=== PATIENT | male | born 1985 | race African-American/Black ===

== ENCOUNTER 2017-07-20 23:46 | Emergency (ER) | payer SELFPAY ==
[2017-07-21 00:32] LABS: ALT (SGPT) 43 U/L (8-55); AST (SGOT) 21 U/L (5-34); Alkaline Phosphatase 95 U/L (40-150); Anion Gap 13 mmol/L (10-20); BUN (Urea Nitrogen) 15 mg/dL (8.9-20.6); Bilirubin, Total 0.3 mg/dL (0.2-1.2); Calc. Creatinine Clearance 0 mL/min (70-130); Calcium 9.4 mg/dL (7.8-10.44); Carbon Dioxide 27 mmol/L (22-29); Chloride 105 mmol/L (98-107); Estimated GFR-MDRD Greater than 90; Globulin 3.9 g/dL (2.4-3.5); Protein, Total 7.7 g/dL (6.0-8.3)
[2017-07-21 00:46] LABS: #Basophils 0.1 thou/uL (0.0-0.2); #Monocytes 0.8 thou/uL (0.11-0.59); #Neutrophils 7.1 thou/uL (1.40-6.50); %Eosinophils 0.2 % (0.0-10.0); %Monocytes 6.6 % (0.0-10.0); Hematocrit 46.6 % (42.0-52.0); Macrocytosis SLIGHT = 6-15 cells (100X) (0-5/hpf); Mean Platelet Volume 7.7 fL (7.4-10.4); Red Blood Cell (RBC) Count 4.06 mill/uL (4.70-6.10)
[2017-07-21] MEDS ORDERED: Ondansetron HCl/PF 4 MG/2 ML Vial ONE (01:19)
[2017-07-21] MEDS ORDERED: Morphine 4 MG/ML VIAL ONE (01:19)
[2017-07-21 01:34] LABS: Bilirubin Small (Negative); Blood, Urine Large (Negative); Glucose, Urine (Dipstick) Negative (Negative); Ketone, Urine Trace mg/dL (Negative); Nitrite Negative (Negative); Protein, Urine (Dipstick) 30 mg/dL (Neg-Trace)
[2017-07-21 01:36] LABS: Bacteria/HPF None Seen HPF (None Seen); Hyaline Casts/LPF 0-3 HYALINE CAST LPF (0-3 Hyaline); RBC/HPF GREATER THAN 50-TNTC HPF (0-3); Squamous Epithelial None Seen HPF (0-3); WBC/HPF 0-3 HPF (0-3)
[2017-07-21] MEDS ORDERED: Ketorolac Tromethamine 30 MG/ML VIAL ONE (02:13)
[2017-07-21 02:16] LABS: Lipase 11 U/L (8-78)
[2017-07-21 02:17] LABS: CK (CPK) 207 U/L (30-200)
--- NOTE | 2017-07-21 07:39 | CT ---
PRELIMINARY REPORT/[facility]/EMERGENCY AFTER HOURS PROCEDURE: EXAM: CT Abdomen and Pelvis Without Intravenous Contrast CLINICAL HISTORY: 31 years old, male; Pain; Abdominal pain; Flank; Left; Patient HX: [id number] presents to ed for left sided flank pain. Pt reports sudden onset of left sided flank pain that started around 6pm today. Pt report s vomiting but denies vomiting any blood. Pt denies any testicular pain. Pt reports HX of similar sym ptoms but reports he didn't go to an er at that time. Pt denies HX of injury to his back. Pt denies H X of kidney stones. TECHNIQUE: Axial computed tomography images of the abdomen and pelvis without intravenous contrast. Coronal reformatted images were created and reviewed. COMPARISON: No relevant prior studies available. FINDINGS: Lower thorax: No acute findings. ABDOMEN: Liver: Mild hepatomegaly. Gallbladder and bile ducts: Normal. Pancreas: Normal. Spleen: Normal. Adrenals: Normal. Kidneys and ureters: Normal. Stomach and bowel: Normal. Appendix: No findings to suggest acute appendicitis. PELVIS: Bladder: Normal. Reproductive: Normal as visualized. ABDOMEN and PELVIS: Intraperitoneal space: Normal. No free air. No significant fluid collection. Bones/joints: No acute fracture. No dislocation. Soft tissues: Normal. Vasculature: Phleboliths within the pelvis. No abdominal aortic aneurysm. Lymph nodes: Normal. IMPRESSION: 1. No acute findings. 2. Non-acute findings are described above. Thank you for allowing us to participate in the care of your patient. Dictated and Authenticated by: Jeevan Schaefer MD 07/21/2017 1:40 AM Central Time ([place] & [place]) FINAL REPORT: CT ABDOMEN AND PELVIS NONCONTRAST: FINDINGS/IMPRESSION: I agree with the above-provided preliminary interpretation provided above. No urolithiasis or obstructive uropathy. Reference is made to 07/02/16 exam.
== END 2017-07-21 03:56 | disposition home or self-care (01) ==
LOC: ERS 23:46
DX: R31.9 Hematuria, unspecified (principal); R10.9 Unspecified abdominal pain; I10 Essential (primary) hypertension; F17.210 Nicotine dependence, cigarettes, uncomplicated; Z71.6 Tobacco abuse counseling
CPT/HCPCS: 36415; 74176; 80053; 81003; 81015; 82550; 83690; 85025; 96361; 96374; 96375; 99406; J1885; J2270; J2405

== ENCOUNTER 2017-07-22 22:16 | Emergency (ER) | payer SELFPAY ==
[~2017-07-22 22:16] MED LIST: ISOVUE-370 76%-LOCM 1 ML ONE; Iopamidol 370 76% 50 ML VIAL FS ONE
[2017-07-22] MEDS ORDERED: Morphine 4 MG/ML VIAL ONE (23:00)
[2017-07-22] MEDS ORDERED: Morphine 2 mg/2ml in 0.9% NaCl PF SYRINGE ONE (23:01)
[2017-07-22] MEDS ORDERED: Ondansetron HCl/PF 4 MG/2 ML Vial ONE (23:01)
[2017-07-22 23:23] LABS: #Basophils 0.1 thou/uL (0.0-0.2); #Eosinphils 0.1 thou/uL (0.0-0.7); #Lymphocytes 4.3 thou/uL (1.20-3.40); #Monocytes 0.9 thou/uL (0.11-0.59); #Neutrophils 7.4 thou/uL (1.40-6.50); %Basophils 0.7 % (0.0-1.0); %Eosinophils 0.4 % (0.0-10.0); %Lymphocytes 33.8 % (21.0-51.0); %Monocytes 6.8 % (0.0-10.0); Hematocrit 45.6 % (42.0-52.0); Mean Platelet Volume 8.7 fL (7.4-10.4); Red Blood Cell (RBC) Count 4.01 mill/uL (4.70-6.10); White Blood Cell (WBC) Count 12.7 thou/uL (4.8-10.8)
[2017-07-22 23:24] LABS: Lactic Acid - Sepsis 2.1 mmol/L (0.5-2.2)
[2017-07-22 23:25] LABS: ALT (SGPT) 23 U/L (8-55); AST (SGOT) 14 U/L (5-34); Alkaline Phosphatase 84 U/L (40-150); Anion Gap 14 mmol/L (10-20); BUN (Urea Nitrogen) 15 mg/dL (8.9-20.6); Bilirubin, Total 0.4 mg/dL (0.2-1.2); Calc. Creatinine Clearance 0 mL/min (70-130); Calcium 9.2 mg/dL (7.8-10.44); Carbon Dioxide 24 mmol/L (22-29); Chloride 104 mmol/L (98-107); Estimated GFR-MDRD Greater than 90; Globulin 3.7 g/dL (2.4-3.5); Lipase 15 U/L (8-78); Protein, Total 7.3 g/dL (6.0-8.3)
[2017-07-23 00:27] LABS: Bilirubin Negative (Negative); Blood, Urine Large (Negative); Glucose, Urine (Dipstick) Negative (Negative); Ketone, Urine 15 mg/dL (Negative); Nitrite Negative (Negative); Protein, Urine (Dipstick) Trace mg/dL (Neg-Trace)
[2017-07-23 00:30] LABS: Bacteria/HPF None Seen HPF (None Seen); Hyaline Casts/LPF 0-3 HYALINE CAST LPF (0-3 Hyaline); RBC/HPF 21-50 HPF (0-3); Squamous Epithelial None Seen HPF (0-3); WBC/HPF 0-3 HPF (0-3)
--- NOTE | 2017-07-23 08:01 | CT ---
PRELIMINARY REPORT/[facility]/EMERGENCY AFTER HOURS PROCEDURE: EXAM: CT Abdomen and Pelvis With Intravenous Contrast EXAM DATE/TIME: 07/23/2017 12:57 AM CLINICAL HISTORY: Pain; Abdominal pain; Generalized; Patient HX: [id number] presents to ed C/O abd pain, ons et . Pt notes recent dx of nephrolithiasis. Pt passed stone. At that time, pt seen in ed and given RX toradol. RX never offered any relief. Associated with radiation of pain to back and flank, d ecr appetite. Denies fever, chills, eye complaints, sore throat, hematuria, hematemesis, drug use. HX tobacco use (x 4-5 cigarettes daily). Nkda. TECHNIQUE: Axial computed tomography images of the abdomen and pelvis with intravenous contrast. Coronal reformatted images were created and reviewed. COMPARISON: CT Stone Protocol 2017-07-21 00:55 FINDINGS: Lower thorax: Contrast in the distal esophagus compatible with reflux. ABDOMEN: Liver: Unremarkable. No mass. Gallbladder and bile ducts: Unremarkable. No calcified stones. No ductal dilation. Pancreas: Unremarkable. No mass. No ductal dilation. Spleen: Unremarkable. No splenomegaly. Adrenals: Unremarkable. No mass. Kidneys and ureters: Excreted contrast within the proximal renal collecting systems bilaterally limit ing evaluation for underlying calculi. No hydronephrosis. No ureteral calculi. Stomach and bowel: Unremarkable. No obstruction. No mucosal thickening. Appendix: No findings to suggest acute appendicitis. PELVIS: Bladder: Unremarkable. No mass. Reproductive: Rounded cystic structures again demonstrated in the scrotum bilaterally measuring appro ximately 3.5 x 3.1 x 3.1 cm on the right and 2.5 x 2.3 x 2.6 cm on the left which may represent epidi dymal cysts. ABDOMEN and PELVIS: Intraperitoneal space: Unremarkable. No free air. No significant fluid collection. Bones/joints: No acute fracture. No dislocation. Soft tissues: Unremarkable. Vasculature: Unremarkable. No abdominal aortic aneurysm. Lymph nodes: Unremarkable. No enlarged lymph nodes. IMPRESSION: 1. No evidence for renal obstruction. No identifiable ureteral calculi. 2. Other findings as above. ---We are pleased to participate in the care of your patient.--- Thank you for allowing us to participate in the care of your patient. Dictated and Authenticated by: Loraine De Leon MD 07/23/2017 1:22 AM Central Time ([place] & [place]) FINAL REPORT CT ABDOMEN AND PELVIS WITH IV CONTRAST: Liver, spleen, and pancreas unremarkable. Kidneys appear unremarkable. No hydronephrosis. There is nonspecific distention of small bowel loops. No evidence of acute process. I am in agreement with the preliminary report. POS: [facility]
== END 2017-07-23 03:42 | disposition home or self-care (01) ==
LOC: ERS 22:16
DX: N50.3 Cyst of epididymis (principal); R31.9 Hematuria, unspecified; I10 Essential (primary) hypertension; F17.210 Nicotine dependence, cigarettes, uncomplicated
CPT/HCPCS: 36415; 74177; 80053; 81003; 81015; 83605; 83690; 85025; 87086; 96361; 96374; 96375; 99406; J2270; J2405

== ENCOUNTER 2017-07-26 10:00 | Emergency (ER) | payer SELFPAY ==
[2017-07-26 10:52] LABS: #Eosinphils 0.1 thou/uL (0.0-0.7); #Lymphocytes 3.2 thou/uL (1.20-3.40); #Monocytes 0.8 thou/uL (0.11-0.59); #Neutrophils 5.5 thou/uL (1.40-6.50); %Basophils 0.2 % (0.0-1.0); %Eosinophils 0.6 % (0.0-10.0); %Lymphocytes 33.5 % (21.0-51.0); %Monocytes 8.1 % (0.0-10.0); Hematocrit 46.6 % (42.0-52.0); Mean Platelet Volume 8.5 fL (7.4-10.4); Red Blood Cell (RBC) Count 4.04 mill/uL (4.70-6.10); White Blood Cell (WBC) Count 9.6 thou/uL (4.8-10.8)
[2017-07-26 11:10] LABS: ALT (SGPT) 15 U/L (8-55); AST (SGOT) 16 U/L (5-34); Alkaline Phosphatase 78 U/L (40-150); Anion Gap 14 mmol/L (10-20); BUN (Urea Nitrogen) 9 mg/dL (8.9-20.6); Bilirubin, Total 0.3 mg/dL (0.2-1.2); Calc. Creatinine Clearance 0 mL/min (70-130); Calcium 9.6 mg/dL (7.8-10.44); Carbon Dioxide 26 mmol/L (22-29); Chloride 102 mmol/L (98-107); Estimated GFR-MDRD Greater than 90; Globulin 3.7 g/dL (2.4-3.5); Protein, Total 7.3 g/dL (6.0-8.3)
[2017-07-26 11:16] LABS: Macrocytosis MODERATE=16-30 cells (100X) (0-5/hpf)
[2017-07-26 12:22] LABS: Bilirubin Small (Negative); Blood, Urine Large (Negative); Glucose, Urine (Dipstick) Negative (Negative); Ketone, Urine 80 mg/dL (Negative); Nitrite Negative (Negative); Protein, Urine (Dipstick) 30 mg/dL (Neg-Trace)
[2017-07-26 12:26] LABS: Bacteria/HPF None Seen HPF (None Seen); Hyaline Casts/LPF 0-3 HYALINE CAST LPF (0-3 Hyaline); RBC/HPF GREATER THAN 50-TNTC HPF (0-3); Squamous Epithelial 0-3 HPF (0-3); WBC/HPF 0-3 HPF (0-3)
[2017-07-26 12:42] LABS: Amphetamine Not Detected (NotDetected); Methadone Not Detected (NotDetected); Methamphetamine Not Detected (NotDetected)
--- NOTE | 2017-07-26 14:34 | RAD ---
ABDOMEN TWO VIEWS WITH ONE VIEW CHEST RADIOGRAPH: History: Abdominal pain. Comparison: CT abdomen and pelvis, 07-13-17. FINDINGS: Lungs are clear without pneumothorax or effusions. Cardiac silhouette and mediastinal contours are wi thin normal limits. No dilated loops of large or small bowel. No free air in the hemidiaphragms. Five non-rib bearing lumbar type vertebrae. IMPRESSION: No acute findings in the abdomen or chest. POS: [facility]
--- NOTE | 2017-07-26 15:35 | ULT ---
TESTICULAR DOPPLER: HISTORY: Pain. COMPARISON: None. FINDINGS: There is normal vascular flow to both testicles. The right testicle measures 4.4 x 1.9 x 2.9 cm and the left testicle measures 4.7 x 1.6 x 2.9 cm. There are bilateral spermatoceles. Right tunica albu ginea cyst measuring 3 mm. IMPRESSION: 1. Normal vascularity of both testicles. 2. Bilateral spermatocele with epididymi. 3. Small right tunica albuginea cyst. POS: [facility]
== END 2017-07-26 16:38 | disposition home or self-care (01) ==
LOC: ERS 10:00
DX: K59.00 Constipation, unspecified (principal); R31.9 Hematuria, unspecified; I10 Essential (primary) hypertension; Z71.6 Tobacco abuse counseling; F17.210 Nicotine dependence, cigarettes, uncomplicated
CPT/HCPCS: 36415; 74022; 76870; 80053; 80306; 81003; 81015; 85025; 86140; 87086; 87491; 87591; 93976; 96372; 99406

== ENCOUNTER 2019-09-30 12:01 | Emergency (ER) | payer OTHER, SELFPAY | END 2019-09-30 14:59 | disposition left against medical advice (07) | LOC: ERS 12:01 | DX: Z53.21 Procedure and treatment not carried out due to patient leaving prior to being seen by health care provider (principal) ==

== ENCOUNTER 2021-05-13 13:47 | Emergency (ER) | payer OTHER, SELFPAY | END 2021-05-13 14:36 | disposition home or self-care (01) | LOC: ERS 13:47 | DX: M62.838 Other muscle spasm (principal); F17.210 Nicotine dependence, cigarettes, uncomplicated | CPT/HCPCS: 99283 ==

== ENCOUNTER 2021-10-18 11:18 | Emergency (ER) | payer SELFPAY | END 2021-10-18 12:10 | disposition home or self-care (01) | LOC: ERS 11:18 | DX: Z02.89 Encounter for other administrative examinations (principal); R45.851 Suicidal ideations; F12.10 Cannabis abuse, uncomplicated; F17.210 Nicotine dependence, cigarettes, uncomplicated | CPT/HCPCS: 99284 ==